=== PATIENT | male | born 1995 | race Caucasian/White ===

== ENCOUNTER 2018-05-08 16:33 | Emergency (ER) | payer SELFPAY ==
[~2018-05-08] VITALS: Ht 177.8 cm; Wt 104.3 kg
[2018-05-08] MEDS ORDERED: HYDROcodone/APAP 5 MG/325 MG (LORTAB) TAB PO ONE (17:00)
--- NOTE | 2018-05-08 17:04 | ED Lower Extremity ---
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 Nursing Sepsis Screen: No Definite Risk Source: patient Exam Limitations: no limitations History of Present Illness Date Seen by Provider: May 08, 2018 Time Seen by Provider: 17:02 Initial Comments To ER with left lateral ankle pain and swelling and only the ability to bear partial weight on the left foot. This began 30 minutes prior to arrival when he jumped a fence and landed wrong. Pain is over the lateral ankle. Onset: just prior to arrival Severity: moderate Pain/Injury Location: left ankle Method of Injury: fell Modifying Factors: Worse With Movement Allergies and Home Medications Allergies Coded Allergies: No Known Drug Allergies (Unverified , 05/08/18) Home Medications Hydrocodone/Acetaminophen 1 Each Tablet, 1 EACH PO Q4H PRN for PAIN-MODERATE Prescribed by: TERESA FLEMING on 05/08/18 5992 Patient Home Medication List Home Medication List Reviewed: Yes Review of Systems Constitutional: see HPI EENTM: see HPI Respiratory: no symptoms reported Cardiovascular: no symptoms reported Genitourinary: no symptoms reported Musculoskeletal: see HPI Skin: no symptoms reported Psychiatric/Neurological: No Symptoms Reported Past Itjkweu-Xivekx-Mmszho Hx Patient Social History Alcohol Use: Denies Use Recreational Drug Use: No Smoking Status: Current Everyday Smoker Recent Foreign Travel: No Contact w/Someone Who Travel: No Recent Infectious Disease Expo: No Recent Hopitalizations: No Physical Abuse: No Sexual Abuse: No Mistreated: No Fear: No Seasonal Allergies Seasonal Allergies: No Past Medical History Surgeries: No Respiratory: No Cardiac: No Neurological: No Genitourinary: No Gastrointestinal: No Musculoskeletal: No Endocrine: No HEENT: No Cancer: No Psychosocial: No Integumentary: No Blood Disorders: No Physical Exam Vital Signs Vital Signs - First Documented 05/08/18 16:46 Temp 98.3 Pulse 83 Resp 20 B/P (MAP) 122/77 (92) Pulse Ox 96 Capillary Refill : Less Than 3 Seconds Height, Weight, BMI Height: 5'10.00" Weight: 230lbs. oz. 104.448965bo; BMI Method:Stated General Appearance: WD/WN, no apparent distress HEENT: PERRL/EOMI, normal ENT inspection Neck: non-tender, full range of motion Respiratory: no respiratory distress, no accessory muscle use Hips: bilateral hip non-tender, bilateral hip normal inspection, bilateral hip normal range of motion Legs: bilateral leg non-tender, bilateral leg normal inspection, bilateral leg normal range of motion Knees: bilateral knee non-tender, bilateral knee normal inspection, bilateral knee normal range of motion Ankles: right ankle non-tender, right ankle normal inspection; bilateral ankle normal range of motion; left ankle pain, left ankle soft tissue tenderness, left ankle swelling, left ankle other (foot is warm with brisk capillary refill of the toes, palpable dorsalis pedis pulse.) Neurologic/Psychiatric: alert, normal mood/affect, oriented x 3 Skin: normal color, warm/dry Progress/Results/Core Measures Results/Orders My Orders Orders - TERESA FLEMING APRN Ankle, Left, 3 Views (05/08/18 16:59) Hydrocodone/Apap 5/325 Tablet (Lortab 5 (05/08/18 17:00) Medications Given in ED Current Medications Medications Dose Ordered Sig/Baljeet Route Start Time Stop Time Status Last Admin Dose Admin Acetaminophen/ Hydrocodone Bitart 1 tab ONCE ONCE PO 05/08/18 17:00 05/08/18 17:01 DC 05/08/18 17:10 1 TAB Vital Signs/I&O 05/08/18 16:46 Temp 98.3 Pulse 83 Resp 20 B/P (MAP) 122/77 (92) Pulse Ox 96 Blood Pressure Mean: 92 Diagnostic Imaging Comments NAME: SHANNENALANChalino Sanchez MED REC#: [id number] PT STATUS: REG ER : 1995 PHYSICIAN: TERESA FLEMING APRN ADMIT DATE: 05/08/18/ER Draft Date of Exam:05/08/18 ANKLE, LEFT, 3 VIEWS EXAM: ANKLE, LEFT, 3 VIEWS INDICATION: Left ankle pain and injury. COMPARISON: None. FINDINGS: Mildly displaced fracture of the lateral talar dome. No other fractures. Left ankle joint effusion. Ankle mortise appears intact. IMPRESSION: 1. Mildly displaced fracture of the lateral talar dome. 2. Left ankle joint effusion. Dictated on workstation # [id number] Dict: 05/08/181730 Trans: 05/08/181734 [facility] [id number] Interpreted by: RACHNA CHILDERS MD Electronically signed by: Departure Communication (Admissions) placed in a posterior short leg splint using 5 inch Ortho-Glass. Impression Primary Impression: Fracture, talus closed Qualified Codes: S92.102A - Unspecified fracture of left talus, initial encounter for closed fracture Disposition: 01 HOME, SELF-CARE Condition: Stable Departure-Patient Inst. Decision time for Depature: 17:17 Referrals: ADALGISA JOSEPH DPM, JOSEPH M DO GRANTHAM, JONATHAN MD IPSEN,NANCY Ramirez MD NO,LOCAL PHYSICIAN (PCP) Primary Care Physician AMANDA MOISE MD, MICHAEL P MD Patient Instructions: Ankle Fracture (DC) Add. Discharge Instructions: 1. Elevate the ankle as much as possible as well with swelling and subsequent pain. Take the pain medication as needed. Wear the splint at all times. Do not remove this for showering and keep it dry for this will mean placing a trash bag over the lower leg and taping it so as to keep the splint dry. Call an orthopedic surgeon of your choosing tomorrow to make an appointment to be seen for follow-up. Do not put any weight on the left ankle. Use the crutches Scripts Hydrocodone/Acetaminophen ([place] 5-325 Tablet) 1 Each Tablet 1 EACH PO Q4H PRN for PAIN-MODERATE MDD 10, #30 TAB Prov: TERESA FLEMING APRN 05/08/18 Work/School Note: Work Release Form Date Seen in the Emergency Department: May 08, 2018 Return to Work: May 12, 2018 TERESA FLEMING APRN May 08, 2018 17:03
[2018-05-08] MEDS ORDERED: HYDR-4226 PO (17:18)
--- NOTE | 2018-05-08 17:36 | Diagnostic Imaging Report ---
EXAM: ANKLE, LEFT, 3 VIEWS INDICATION: Left ankle pain and injury. COMPARISON: None. FINDINGS: Mildly displaced fracture of the lateral talar dome. No other fractures. Left ankle joint effusion. Ankle mortise appears intact. IMPRESSION: 1. Mildly displaced fracture of the lateral talar dome. 2. Left ankle joint effusion. Dictated by: Dictated on workstation # [id number]
[2018-05-08 18:06] VITALS: BP 130/78
== END 2018-05-08 18:06 | disposition home or self-care (01) ==
LOC: ER 16:36
DX: S92.142A Displaced dome fracture of left talus, initial encounter for closed fracture (principal); F17.200 Nicotine dependence, unspecified, uncomplicated; W13.8XXA Fall from, out of or through other building or structure, initial encounter; Y93.39 Activity, other involving climbing, rappelling and jumping off
CPT/HCPCS: 29515; 73610

== ENCOUNTER 2018-05-09 14:33 | Emergency (ER) | payer SELFPAY ==
[~2018-05-09 14:33] MED LIST: HYDR-4226 PO
== END 2018-05-09 15:30 | disposition left against medical advice (07) ==
LOC: EDUNIT# 14:33 → ER 14:33
DX: S99.929A Unspecified injury of unspecified foot, initial encounter (principal); X58.XXXA Exposure to other specified factors, initial encounter